=== PATIENT | female | born 1980 | race American Indian/Alaskan Native ===

== ENCOUNTER 2016-11-13 06:31 | Day surgery (SDC) | payer OTHER ==
--- NOTE | 2016-11-13 07:37 | Anesthesia Day of Surgery ---
Anesthesia Day of Surgery - Day of Surgery Patient Examined: Yes Patient H&P Reviewed: Yes Patient is NPO: Yes (Pt has small amt apple juice at 4AM)
--- NOTE | 2016-11-13 07:40 | Anesthesia Consultation ---
Anesthesia Consult and Med Hx - Airway Anesthetic Teeth Evaluation: Good, Bridges (upper) ROM Head & Neck: Adequate Mental/Hyoid Distance: Adequate Mallampati Class: Class II Intubation Access Assessment: Probably Good - Pulmonary Exam CTA: Yes - Cardiac Exam Cardiac Exam: RRR - Pre-Operative Health Status ASA Pre-Surgery Classification: ASA2 Proposed Anesthetic Plan: MAC - Pulmonary Hx Smoking: Yes (past smoker quit 2 months ago) - Cardiovascular System Hx Hypertension: Yes (controlled on meds) - Other Systems Hx Obesity: Yes - Additional Comments Anesthesia Medical History Comments: NPO after MN. HTN controlled on meds. past smoker
--- NOTE | 2016-11-13 09:03 | Discharge Summary ---
Providers - Providers Date of discharge: 11/13/16 Attending physician: BENJAMIN SANTIAGO Hospitalization Reason for admission: outpatient EGD Condition: Stable Procedures: EGD Disposition: DISCHARGED TO HOME OR SELFCARE Core Measure Documentation - Palliative Care Palliative Care/ Comfort Measures: Not Applicable - Core Measures Any of the following diagnoses?: none Exam - Physical Exam Narrative exam: unchanged from preop - Constitutional Vitals: Temp Pulse Resp BP Pulse Ox 98.1 F 76 13 148/100 100 11/13/16 08:14 11/13/16 08:14 11/13/16 08:14 11/13/16 08:14 11/13/16 08:14 Plan Activity: advance as tolerated Diet: low carbohydrate Follow up with: ESTUARDO GARCIA [Other] - 7 Days
[2016-11-13] MEDS ORDERED: HURRICAINE ONE 20% TOPICAL SPRAY MM (09:07)
[2016-11-13] MEDS ORDERED: WATER FOR IRRIG STERILE IR ONE (09:07)
[2016-11-13] MEDS ORDERED: DIPRIVAN 10 MG/ML IV ONE ×2 (09:08)
--- NOTE | 2016-11-13 09:30 | Operative Report ---
Operative Report Operative Report: OPERATIVE REPORT - EGD DATE 11/13/2016 SURGERY: Upper endoscopy. SURGEON: Efrem Burgess MD [employer] STORE ASSISTANT: Alek Fry M.D. PRE OP DX: dyspepsia POST OP DX: hiatal hernia TYPE OF ANESTHESIA: MAC. ESTIMATED BLOOD LOSS: None. COMPLICATIONS: None. SPECIMENS REMOVED: None. FINDINGS: 1. Small hiatal hernia. 2. Otherwise, normal esophagus, stomach and first portion of duodenum. INDICATIONS:INDICATION FOR PROCEDURE: Patient is a 35-year-old female with a long history of morbid obesity. She is planned to have a weight loss procedure and is here for preoperative planning EGD. PROCEDURE DETAILS: After consent was reviewed, patient was taken back to the operating room where patient was placed in the left lateral decubitus position and a bite block was placed in the mouth. After a time-out was called, MAC anesthesia was initiated. I then passed the endoscope into her oropharynx, into her esophagus, visualized the entire esophagus, which was all within normal limits. I then visualized the stomach and the first portion of the duodenum and there were no abnormalities I could clearly visualize. I then retroflexed the scope in the stomach and visualized the hiatus and I could see a small hiatal hernia. I then desufflated the stomach and removed the endoscope. Patient tolerated procedure well and was transferred to recovery room in good and stable condition.
[2016-11-13] MEDS ORDERED: NACL 0.9% 1000 ML 1,000 ML IV SCH (10:00)
[2016-11-13 10:03] VITALS: BP 115/70
--- NOTE | 2016-11-13 12:06 | Post Anesthesia Evaluation ---
- Post Anesthesia Evaluation Patient Participated: Yes Airway Patent: Yes Stable Respiratory Function: Yes Nausea/Vomiting: No Temp > 96.8F: Yes Pain Manageable: Yes Adequeate Hydration: Yes Anesthesia Complications: No Block Receding Appropriately: Not Applicable Patient on Ventilator: No
== END 2016-11-13 06:32 | disposition home or self-care (01) ==
LOC: GIO 06:31
PROVIDERS: ATTEND Specialist
DX: K44.9 Diaphragmatic hernia without obstruction or gangrene (principal); I10 Essential (primary) hypertension; F31.75 Bipolar disorder, in partial remission, most recent episode depressed; J44.9 Chronic obstructive pulmonary disease, unspecified; K21.9 Gastro-esophageal reflux disease without esophagitis; E66.01 Morbid (severe) obesity due to excess calories; Z68.41 Body mass index [BMI] 40.0-44.9, adult; Z98.890 Other specified postprocedural states; Z87.891 Personal history of nicotine dependence; Z79.899 Other long term (current) drug therapy
CPT/HCPCS: 43235; 81025; J2704; J7030